=== PATIENT | female | born 1965 | race Caucasian/White ===

== ENCOUNTER → 2016-11-26 | Outpatient (CLI) | payer OTHER ==
[~2016-11-26] MED LIST: ABILIFY 5 MG TAB5 MG PO; ADDERALL 10 MG10 MG PO; B-12250 MCG IM; HYDROCODON-ACE1 EAC8 PO; NEURONTIN 300M300 M2 PO; NUVIGIL PO; PROZAC40 MG PO; VALTREX 500 MG500 MG PO; WELLBUTRIN SR150 MG PO; [UNRECOGNIZED DRUG - OTHER] PO
== END ==
LOC: CAT 08:09
DX: M47.892 Other spondylosis, cervical region (principal)